=== PATIENT | male | born 1965 | race Caucasian/White ===

== ENCOUNTER → 2017-07-02 | Outpatient (CLI) | payer BC ==
[2017-07-02 13:33] LABS: ALT/SGPT 41 U/L (12-78); BLOOD UREA NITROGEN 16 mg/dl (7-18); CALCIUM 8.7 mg/dl (8.5-10.1); CARBON DIOXIDE 30 mmol/L (21-32); CHLORIDE 105 mmol/L (98-107); CREATININE 0.87 mg/dl (0.60-1.40); GLUCOSE 98 mg/dl (70-99); POTASSIUM 4.2 mmol/L (3.5-5.1); SODIUM 139 mmol/L (136-145)
[2017-07-02 13:40] LABS: CHOLESTEROL 244 mg/dl (0-200); CHOLESTEROL/HDL RATIO 4.8; HDL CHOLESTEROL 51 mg/dl; TRIGLYCERIDES 188 mg/dl (0-150); VERY LOW DENSITY LIPOPROT CALC 38 mg/dl
== END | disposition home or self-care (01) ==
LOC: C.LABMFLN 07:03
PROVIDERS: ATTEND Family Medicine
DX: Z00.00 Encounter for general adult medical examination without abnormal findings (principal); E78.00 Pure hypercholesterolemia, unspecified

== ENCOUNTER → 2017-10-27 | Outpatient (CLI) | payer BC ==
--- NOTE | 2017-10-27 13:15 | DIAGNOSTIC IMAGING REPORT ---
SINUSES WITH BRAIN LAB CLINICAL HISTORY: Chronic sinusitis. Ear pain. COMPARISON STUDY: No previous studies for comparison. TECHNIQUE: Axial images of the sinuses were obtained without IV contrast. Coronal and sagittal reformats were viewed. The temporal bone CT will be reported separately. FINDINGS: Visualized portions of the intracranial contents are unremarkable on this unenhanced exam. The temporal bone CT will be reported separately. There is mild leftward deviation of the nasal septum with moderate spur formation. There is mild mucosal thickening of the sinuses, most pronounced within the maxillary sinuses. There are no air-fluid levels. There is no bony destruction. Major drainage pathways are patent. Orbits are unremarkable. No suspicious osseous lesions are present. IMPRESSION: 1. Mild mucosal thickening of the sinuses. No CT evidence of acute sinusitis. Patent major drainage pathways. 2. Mild leftward deviation of the nasal septum with moderate spur formation. Electronically signed by: Ollie Carrillo M.D. 10/27/2017 1:13 PM Dictated Date/Time: 10/27/2017 1:07 PM
--- NOTE | 2017-10-27 13:29 | DIAGNOSTIC IMAGING REPORT ---
MASTOIDS-ORB/SELLA/TEMP W/O CLINICAL HISTORY: 52 years-old Male presenting with chronic sinusitis, ear pain. TECHNIQUE: Multidetector CT of the temporal bones was performed without the use of intravenous contrast. IV contrast: None. A dose lowering technique was used consistent with the principles of ALARA (as low as reasonably achievable). COMPARISON: None. CT DOSE (mGy.cm): The estimated cumulative dose is 559.85 mGy.cm. FINDINGS: [employer] topogram: Unremarkable. 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 Trace fluid or soft tissue noted in the right middle ear (series 5 image 140). Smaller amount of fluid or soft tissue noted in the left middle ear (series 5 image 145). The right tympanic membrane is abnormally thickened. The left tympanic membrane is thin and normal apart from the anterior most aspect which is abutted by the abnormal fluid or soft tissue. Middle ear ossicles intact bilaterally. External auditory canals patent bilaterally. Inner ears structures normal bilaterally. Vestibular aqueducts nondilated. No bony remodeling of the internal auditory canals. Temporomandibular joints intact. No bony destruction of the scutum in either ear. IMPRESSION: 1. Fluid or abnormal soft tissue in the bilateral middle ears greater on the right. Correlate with physical exam. 2. Abnormally thickened right tympanic membrane. 3. No bony destruction to suggest an erosive soft tissue mass. 4. Intact middle ear ossicles. Electronically signed by: Meng Saldaña M.D. 10/27/2017 1:28 PM Dictated Date/Time: 10/27/2017 1:24 PM
== END | disposition home or self-care (01) ==
LOC: C.CTS 12:49
PROVIDERS: ATTEND Otolaryngology
DX: J32.9 Chronic sinusitis, unspecified (principal)

== ENCOUNTER → 2017-11-19 | Day surgery (SDC) | payer BC ==
[2017-11-11 13:05] VITALS: Ht 176.5 cm; Wt 72.7 kg
--- NOTE | 2017-11-17 09:34 | History and Physical: Surg Cnt ---
History & Physical Date November 17, 2017. Chief Complaint ear infections, nasal obstruction History of Present Illness The patient is a 52 year old male with complaints of chronic otitis media since childhood, hearing loss, multiple surgeries left ear, also deviated septum Additional History Hepatic Disease: No Endocrine Disorder: No Kidney Disease: No Hypertension: No Heart Disease: No Bleeding Tendencies: No Infectious Diseases: No Allergies Coded Allergies: NO KNOWN DRUG ALLERGIES (Verified Allergy, Unknown, ., 11/11/17) Home Medications Scheduled Simvastatin (Zocor), 10 MG PO HS Scheduled PRN Fluticasone Propionate (Nasal) (Allergy Nasal [place] 24 Ho), 1 SPRAY YESIKA DAILY PRN for PRN Physical Examination Skin: warm/dry, no rash Eyes: normal inspection, EOMI, sclerae normal ENT: + pertinent finding (septal dev. to left, scarred left TM, both TM's dull with fluid, mixed hearing loss) Head: normocephalic, atraumatic Neck: supple, no adenopathy, trachea midline Respiratory/Chest: lungs clear, normal breath sounds, no respiratory distress Cardiovascular: regular rate, rhythm, no edema, no murmur Abdomen / GI: normal bowel sounds, non tender Back: normal inspection Extremities: normal inspection, normal range of motion Diagnosis chronic otitis media, septal deviation Plan of Treatment septoplasty, BMT, balloon both eustachian tubes
--- NOTE | 2017-11-18 14:57 | History and Physical: Surg Cnt ---
History & Physical Date November 18, 2017. Chief Complaint ear infections and nasal obstruction History of Present Illness The patient is a 52 year old male with complaints of chronic otitis media, septal deviation Additional History Hepatic Disease: No Endocrine Disorder: No Kidney Disease: No Hypertension: No Heart Disease: No Bleeding Tendencies: No Infectious Diseases: No Allergies Coded Allergies: NO KNOWN DRUG ALLERGIES (Verified Allergy, Unknown, ., 11/11/17) Home Medications Scheduled Simvastatin (Zocor), 10 MG PO HS Scheduled PRN Fluticasone Propionate (Nasal) (Allergy Nasal [place] 24 Ho), 1 SPRAY YESIKA DAILY PRN for PRN Physical Examination Skin: warm/dry, no rash Eyes: normal inspection, EOMI, sclerae normal ENT: normal ENT inspection, pharynx normal Head: normocephalic, atraumatic Neck: supple, no adenopathy, trachea midline Respiratory/Chest: lungs clear, normal breath sounds, no respiratory distress Cardiovascular: regular rate, rhythm, no edema, no murmur Abdomen / GI: normal bowel sounds, non tender Back: normal inspection Extremities: normal inspection, normal range of motion Neurologic/Psych: no motor/sensory deficits, alert, normal reflexes, oriented x 3 Diagnosis chronic otitis media, septal deviation Plan of Treatment septoplasty, BMT, balloon eustachian tubes
[~2017-11-19] VITALS: Ht 176.5 cm; Wt 72.7 kg
[~2017-11-19] MED LIST: ATROPINE SULFATE 0.1 MG/ML 5ML SYR IV PRN; CEFAZOLIN 1000MG IV PUSH 7.5 ML IV SCH; DEXAMETHASONE SOD INJ 4 MG/ML VIAL ONE; EpHEDrine SULFATE INJ 50 MG/ML AMP IV PRN; EpINEphrine INJ 1MG/ML AMP 1 MG/ML AMP ONE; FENTANYL CITRATE INJ 50 MCG/1 ML 2 ML VIAL IV PRN; FENTANYL CITRATE INJ 50 MCG/1 ML 2 ML VIAL ONE; FLUT50SP45 NAE; GELATIN SPONGE 12-7MM ONE; HYDR-5688 PO; HYDROCODONE/ACETAMIN 5/325MG TAB PO PRN; HydrALAZINE HCL 20 MG/ML VIAL ONE; LACTATED RINGER'S 1000ML 1,000 ML IV SCH; LIDO 2%/EPINEPHRINE 1:100000 20 ML VIAL ONE; LIDOCAINE 4% MPF SOAK 5 ML = 1 DOSE ONE; LIDOCAINE HCL 2% 2 ML VIAL (20MG/ML) ONE; MIDAZOLAM HCL 1 MG/ML 2ML VIAL ONE; NURSING VERBAL MED ORDER ONE; OFLOXACIN 0.3% OP SOLN 5 ML BTL ONE; ONDANSETRON INJ 2 MG/ML 2 ML VIAL IV PRN; ONDANSETRON INJ 2 MG/ML 2 ML VIAL ONE; PROPOFOL IV EMULSION 10 MG/ML 20 ML VIAL ONE; SIMV10TA5 PO; SODIUM CHLORIDE 0.9% 1000ML 1,000 ML IV SCH; TETRACAINE HCL (OPHTH) 60 DROPS/4 ML BTL ONE
--- NOTE | 2017-11-19 09:08 | History & Physical Bridge Note ---
H&P Re-Evaluation Bridge Note: I have examined the patient, reviewed the History & Physical and in the interval since the performance of the History & Physical I have noted the following changes of clinical significance: No changes noted
--- NOTE | 2017-11-19 10:26 | Discharge Instructions-SurgCtr ---
Discharge Instructions Date of Service November 19, 2017. Visit Reason for Visit: Chronic O.m., Septal Deviation Discharge Discharge Diagnosis / Problem: same Discharge Goals Goal(s): Improve disease control Activity Recommendations Activity Limitations: per Instructions/Follow-up section Anesthesia . Post Anesthesia Instructions: If you have had General Anesthesia or IV Sedation: * Do not drive today. * Resume driving when surgeon permits. * Do not make important decisions or sign legal documents today. * Call surgeon for: 1. Temperature elevations greater than 101 degrees F. 2. Uncontrollable pain. 3. Excessive bleeding. 4. Persistent nausea and vomiting. 5. Medication intolerance (nausea, vomiting or rash). * For nausea and vomiting use only clear liquids such as: tea, soda, bouillon until nausea subsides, then gradually increase diet as tolerated. * If you have any concerns or questions, call your surgeon's office. If physician is unavailable and it is an emergency, call 911 or go to the nearest emergency room. . Instructions / Follow-Up Instructions / Follow-Up ACTIVITY RECOMMENDATIONS: * Take it easy today. * Return to regular activity tomorrow. OVER THE COUNTER MEDICATIONS: * You may use Tylenol for pain * Avoid aspirin or aspirin containing products, e.g. as they may increase bleeding. DIET: Resume previous diet RETURN TO SCHOOL/WORK: May return to normal activities tomorrow. SPECIAL CARE INSTRUCTIONS: * Drainage is not unusual during the first few days after placement of tubes. The drainage may be bloody. If it is foul smelling or very thick, please notify the doctor. Call or cell phone . * Keep water out of the ears when shampooing or bathing. Use cotton balls covered with Vaseline or "Macks" ear plugs. * Call physician if increased pain, fever over 101 degrees F. or any problems. FOLLOW UP VISIT: Follow-up Visit with Dr. Vieyra in 2 weeks. Please call to schedule.ACTIVITY RECOMMENDATIONS: * Being up and around is good, but no strenuous activity, heavy lifting or physical exertion for one week. * Keep your head elevated 30 degrees when lying down or sleeping. * Do not blow your nose for 48 hours, sniff back instead. * Avoid hot showers. OVER THE COUNTER MEDICATIONS: * You may use Tylenol * Avoid aspirin or aspirin containing products, e.g. as they may increase bleeding. SPECIAL CARE INSTRUCTIONS: * Expect to have bloody drainage from your nose and/or down your throat for one to three days. Change drip pad as needed. * Begin irrigating your nose with saline solution today, at least six to ten times per day and sniff back to help remove old clots or crust. * You may experience nasal and facial congestion, pain and pressure, this is normal. * Please call with any significant and/or progressive pain, redness, swelling around the eyes, visual changes, fever of 101.5 degrees F, active bleeding or any problems or concerns. * If active bleeding occurs, spray the nose three times at one minute intervals with Afrin spray and call or cell phone: . If unable to reach the doctor, go to the nearest Emergency Department. Special Diet: * Avoid extremely hot fluids. FOLLOW UP VISIT: Follow-up Visit with Dr. Vieyra If not already scheduled, please call to schedule. Diet Recommendations Home Diet: no limitations Pending Studies Studies pending at discharge: no Medical Emergencies . Who to Call and When: Medical Emergencies: If at any time you feel your situation is an emergency, please call 911 immediately. . Non-Emergent Contact Non-Emergency issues call your: Primary Care Provider . . "Provider Documentation" section prepared by Meenu Vieyra. . [place] Drug Monitoring Program Search Results: no issues identified
[2017-11-19] MEDS: BACITRACIN OINT 15 GM TUBE ONE ×2 (10:45→11:10)
[2017-11-19 12:47] VITALS: TEMP 36
--- NOTE | 2017-11-19 12:51 | OPERATIVE REPORT ---
DATE OF OPERATION: 11/19/2017 PREOPERATIVE DIAGNOSES: Chronic otitis media and septal deviation and eustachian tube dysfunction. POSTOPERATIVE DIAGNOSES: Chronic otitis media and septal deviation and eustachian tube dysfunction. PROCEDURE: Septoplasty, BMT, and balloon of both eustachian tubes. SURGEON: Meenu Vieyra MD ANESTHESIA: General LMA. COMPLICATIONS: None. BLOOD LOSS: 30 mL. HISTORY: This is a 52-year-old male with recurrent chronic otitis media, a very scarred right tympanic membrane, previous history of multiple tubes and tympanoplasty. He also has septal deviation to the left and a blocked sensation in both ears and is unable to clear his ears. DESCRIPTION OF PROCEDURE: The patient was brought to the operating room and placed in supine position. General anesthesia was induced using LMA, prepped and draped in usual sterile manner. The nose was decongested using topical cottonoids with a solution of 4 mL of 4% Xylocaine mixed with 1 mL of epinephrine. Injection of 2% Xylocaine with 1:100,000 strength epinephrine was also used. The right eustachian tube was visualized and cannulated with the AERA balloon which was dilated to 12 atmospheric pressures and left inflated for 2 minutes. The left side could not be cannulated initially due to the septal deviation. Therefore, the endoscope was used and endoscopic septoplasty was performed. A left [place] incision was made using a 15 blade. The mucoperichondrium was elevated off the left side of the septum and then the dissection was crossed over into the right side of the septum through the cartilage isolating the ethmoid plate via bilateral posterior tunnels and then isolating the bone spur projecting to the left via superior inferior tunnels. The isolated bone spur was removed using the Jimi-Cazares rongeurs and the Aaron forceps. Deviated portion of perpendicular plate of the ethmoid was also removed in small pieces using the Jimi-Cazares rongeurs along with a small inferior spur of the vomer crest which was projecting to the left which was removed using the [place] dissector and the Aaron forceps. This returned the septum to the midline. At this point, the left eustachian tube was cannulated with the AERA balloon and dilated to 12 atmospheric pressures and kept inflated for 2 minutes and then the balloon was withdrawn. Prior to the septoplasty, both ears were visualized with a microscope and cleaned of cerumen and myringotomy incisions were made inferiorly and a Paparella tubes were inserted. The right tympanic membrane was very thick and scarred, however, the Paparella tube was able to be inserted, but the left tympanic membrane was thinner and was able to be incised and the Paparella tube was able to be inserted more easily. The ofloxacin drops were placed. The patient tolerated the procedure well. After finishing the septoplasty and the dilation of the eustachian tubes and then packing the left nostril with a single piece of Gelfoam and then he was taken to recovery area in satisfactory condition. I attest to the content of the Intraoperative Record and any orders documented therein. Any exception s are noted below.
--- NOTE | 2017-11-19 12:55 | Anesthesia Progress Nt - [facility] ---
Anesthesia Post Op Note Date & Time November 19, 2017 at 12:55 Vital Signs Pain Intensity: 4 Vital Signs Past 12 Hours Date Time Temp Pulse Resp B/P (MAP) Pulse Ox O2 Delivery O2 Flow Rate FiO2 11/19/17 12:47 36.0 56 18 145/87 (106) 96 Room Air 11/19/17 12:42 59 13 11/19/17 12:42 58 13 96 11/19/17 12:41 157/104 11/19/17 12:37 60 10 97 11/19/17 12:37 59 10 11/19/17 12:36 143/97 11/19/17 12:35 59 10 96 11/19/17 12:35 58 10 11/19/17 12:32 36.6 57 20 143/97 96 Room Air 11/19/17 12:31 131/81 11/19/17 12:30 59 7 11/19/17 12:30 59 7 144/100 94 11/19/17 12:26 154/105 11/19/17 12:25 58 7 97 11/19/17 12:25 57 7 11/19/17 12:21 155/103 11/19/17 12:20 57 12 97 11/19/17 12:20 58 12 11/19/17 12:18 162/108 11/19/17 12:16 167/117 11/19/17 12:15 56 15 100 11/19/17 12:15 56 15 11/19/17 12:11 152/101 11/19/17 12:10 54 10 11/19/17 12:10 52 10 100 11/19/17 12:06 167/109 11/19/17 12:05 64 7 11/19/17 12:05 66 7 98 11/19/17 12:01 155/104 11/19/17 12:00 55 8 11/19/17 12:00 55 8 99 11/19/17 11:58 152/105 11/19/17 11:56 152/104 11/19/17 11:55 52 9 155/112 100 11/19/17 11:55 53 9 11/19/17 11:51 176/104 11/19/17 11:50 66 12 100 11/19/17 11:50 62 12 11/19/17 11:46 152/126 11/19/17 11:45 58 15 5/3/18 11:45 59 15 100 11/19/17 11:41 136/100 11/19/17 11:40 59 12 99 11/19/17 11:40 60 12 11/19/17 11:36 142/92 11/19/17 11:35 61 13 11/19/17 11:35 61 13 99 11/19/17 11:31 125/87 11/19/17 11:30 65 14 11/19/17 11:30 65 14 98 11/19/17 11:26 134/92 11/19/17 11:25 36.4 70 16 134/92 95 Humidified Oxygen 6 Mask 11/19/17 09:53 36.9 59 16 124/85 (98) 97 Room Air Notes Mental Status: alert / awake / arousable, participated in evaluation Pt Amnestic to Procedure: Yes Nausea / Vomiting: adequately controlled Pain: adequately controlled Airway Patency, RR, SpO2: stable & adequate BP & HR: stable & adequate Hydration State: stable & adequate Anesthetic Complications: no major complications apparent
[2017-11-19 13:05] VITALS: BP 143/84; PULSE 62; O2SAT 95
== END | disposition home or self-care (01) ==
LOC: X.SURG 09:33
PROVIDERS: ATTEND Otolaryngology
DX: J34.2 Deviated nasal septum (principal); H66.93 Otitis media, unspecified, bilateral; H69.83 Other specified disorders of Eustachian tube, bilateral; H91.92 Unspecified hearing loss, left ear; E78.5 Hyperlipidemia, unspecified